=== PATIENT | male | born 1970 | race Caucasian/White ===

== ENCOUNTER 2019-10-10 10:02 | Inpatient (IN) | payer BC ==
[~2019-10-10 10:02] MED LIST: Dexamethasone 4 MG/ML SDV ONE; Glycopyrrolate 0.2 MG/ML 5 ML MDV ONE; Lactated Ringers 1,000 ML ONE; Neostigmine Methylsulfate 1 MG/ML 5 ML Syringe ONE; Ondansetron 4 MG/2 ML SDV ONE; Propofol 200 MG/20 ML SDV ONE; Rocuronium 50 MG/5 ML Vial ONE; Succinylcholine 200 MG/10 ML MDV ONE; cefOXitin 2 GM Vial ONE; fentaNYL 250 MCG/5 ML SDV ONE
[2019-10-10] MEDS ORDERED: Scopolamine 1.5 MG Transdermal Patch TOP ONE (10:15)
[2019-10-10] MEDS ORDERED: Acetaminophen 500 MG Tab PO ONE (10:15)
[2019-10-10] MEDS ORDERED: Gabapentin 300 MG Cap PO ONE (10:15)
[2019-10-10] MEDS ORDERED: Celecoxib 200 MG Cap PO ONE (10:15)
[2019-10-10] MEDS ORDERED: Carvedilol 25 MG Tab PO ONE (10:28)
[2019-10-10] MEDS ORDERED: Dextrose 5%-Lactated Ringers 1,000 ML IV SCH ×2 (11:00→16:00)
[2019-10-10] MEDS ORDERED: cefOXitin 2 GM in Sodium Chloride 0.9% 50 ML IV ONE (11:30)
[2019-10-10] MEDS ORDERED: Lidocaine 2% 100 MG/5 ML Syringe IVPUSH SCH (11:45)
[2019-10-10] MEDS ORDERED: Lidocaine 0.4%/D5W 2 GM/500 ML BAG IV SCH (11:45)
[2019-10-10] MEDS ORDERED: Ketamine 500 MG/5 ML MDV IV SCH (11:45)
[2019-10-10] MEDS ORDERED: Ketamine 50 MG in Sodium Chloride 0.9% 49.5 ML IV SCH (11:45)
[2019-10-10] MEDS ORDERED: fentaNYL 250 MCG/5 ML SDV ONE (13:49)
[2019-10-10] MEDS ORDERED: Propofol 200 MG/20 ML SDV ONE (14:05)
[2019-10-10] MEDS ORDERED: Sugammadex Sodium 200 MG/2 ML VIAL ONE (15:10)
[2019-10-10] MEDS: Insulin Lispro 100 Unit/ML 3 ML KwikPen SUBCUT PRN ×2 (15:25→22:14)
[2019-10-10] MEDS ORDERED: hydrOXYzine HCL 100 MG/2 ML SDV IM PRN (15:55)
[2019-10-10] MEDS ORDERED: diphenhydrAMINE 50 MG/ML SDV IVPUSH PRN (15:55)
[2019-10-10] MEDS ORDERED: HYDROmorphone 0.5 MG/0.5 ML Syringe IVPUSH PRN (15:55)
[2019-10-10] MEDS ORDERED: Labetalol 20 MG/4 ML Syringe IVPUSH PRN (15:55)
[2019-10-10] MEDS ORDERED: SCOPOLAMINE PATCH CHECK TOP SCH (15:55)
[2019-10-10] MEDS ORDERED: Metoclopramide 10 MG/2 ML SDV IVPUSH PRN (15:55)
[2019-10-10] MEDS ORDERED: Ondansetron 4 MG/2 ML SDV IVPUSH PRN (15:55)
[2019-10-10] MEDS ORDERED: HYDROmorphone 1 MG/ML Syringe IV PRN (15:55)
[2019-10-10] MEDS ORDERED: Lactated Ringers 1,000 ML IV SCH (16:00)
[2019-10-10] MEDS: Lidocaine 0.4%/D5W 2 GM/500 ML BAG IV SCH (17:16)
[2019-10-10] MEDS: cefOXitin 2 GM in Sodium Chloride 0.9% 50 ML IV SCH (17:31)
[2019-10-10] MEDS ORDERED: Pantoprazole 40 MG Vial IVPUSH SCH (18:00)
[2019-10-10] MEDS ORDERED: MVI, Adult with Vitamin K 10 ML, Thiamine 200 MG, Chromium/Copper/Mang/Selen/Zn 1 ML in... IV SCH ×4 (18:00)
[2019-10-10] MEDS: Gabapentin 250 MG/5 ML Solution ML 470 ML Bottle PO SCH (20:56)
[2019-10-10] MEDS: Heparin Sodium 5,000 Units/ML Vial SUBCUT SCH (20:56)
[2019-10-10] MEDS: Carvedilol 25 MG Tab PO SCH (20:57)
[2019-10-10] MEDS ORDERED: metFORMIN 500 MG/5 ML PO SCH (21:00)
[2019-10-10] MEDS ORDERED: Insulin Glargine,Human Rec. Analog 100 Units/ML 3 ML Pen SUBCUT ONE (21:00)
[2019-10-10] MEDS: Acetaminophen Soln 650 MG/20.3 ML UD Cup PO SCH (21:03)
[2019-10-11] MEDS: cefOXitin 2 GM in Sodium Chloride 0.9% 50 ML IV SCH ×2 (00:04→06:05)
[2019-10-11] MEDS ORDERED: Iopamidol 612 MG/ML 50 ML SDV PO ONE (02:00)
--- NOTE | 2019-10-11 02:19 | CRLCR ---
Indication: Giana-en-Y gastric bypass. Technique: Abdomen 2 view Comparison: None Findings/Impression: Two submitted abdominal films. The 1st film is centered slightly low with some contrast seen within the stomach as well as proximal small bowel. Second film shows transit of the contrast in the proximal to mid small bowel with a drain noted at the epigastric region. No gross leak seen, however note that the area around the drain is only well seen on the 2nd film and therefore more subtle change between the 2 films could be missed. Dictated by Arben Valles MD @ Oct 11 2019 2:15AM Signed by Dr. Arben Valles @ Oct 11 2019 2:17AM
[2019-10-11] MEDS: Acetaminophen Soln 650 MG/20.3 ML UD Cup PO SCH ×4 (04:51→22:01)
[2019-10-11] MEDS: Heparin Sodium 5,000 Units/ML Vial SUBCUT SCH ×3 (04:51→21:04)
[2019-10-11] MEDS ORDERED: Ondansetron 4 MG Tab.DIS PO PRN (07:31)
[2019-10-11] MEDS ORDERED: hydrOXYzine HCl 25 MG Tab PO PRN (07:38)
[2019-10-11] MEDS: Celecoxib 200 MG Cap PO SCH (08:54)
[2019-10-11] MEDS: metFORMIN 500 MG/5 ML PO SCH ×2 (08:54→17:16)
[2019-10-11] MEDS: Gabapentin 250 MG/5 ML Solution ML 470 ML Bottle PO SCH ×3 (08:55→21:10)
[2019-10-11] MEDS: Carvedilol 25 MG Tab PO SCH ×2 (08:55→21:05)
[2019-10-11] MEDS: Lactated Ringers 1,000 ML IV SCH ×2 (08:59→10:35)
[2019-10-11] MEDS ORDERED: amLODIPine 10 MG Tab PO SCH (09:00)
[2019-10-11] MEDS ORDERED: Non-Formulary Medication 1 Each (Lisinopril [Zestril] 40 MG) PO SCH (09:00)
[2019-10-11] MEDS ORDERED: Lisinopril 20 MG Tab PO SCH (09:00)
[2019-10-11] MEDS ORDERED: PARoxetine 20 MG Tab PO SCH (09:00)
--- NOTE | 2019-10-11 09:22 | PCM.PN ---
- General Info Date of Service: 10/11/19 Admission Dx/Problem (Free Text): morbid obesity Subjective Update: No pain this morning, no complaints. Functional Status: Reports: Pain Controlled - Review of Systems General: Reports: No Symptoms HEENT: Reports: No Symptoms Pulmonary: Reports: No Symptoms Cardiovascular: Reports: No Symptoms Gastrointestinal: Reports: No Symptoms Genitourinary: Reports: No Symptoms Musculoskeletal: Reports: No Symptoms Skin: Reports: No Symptoms Neurological: Reports: No Symptoms Psychiatric: Reports: No Symptoms - Patient Data Vitals - Most Recent: Last Vital Signs Temp 37 C 10/11/19 07:07 Pulse 86 10/11/19 08:55 Resp 18 10/11/19 07:07 BP 125/62 10/11/19 08:56 Pulse Ox 90 L 10/11/19 07:29 Weight - Most Recent: 132.534 kg I&O - Last 24 Hours: Intake & Output 10/10/19 10/11/19 10/11/19 22:59 06:59 14:59 Intake Total 387 2542 120 Output Total 860 840 150 Balance -473 1702 -30 Lab Results Last 24 Hours: Laboratory Results - last 24 hr 10/10/19 Range/Units 10:15 Blood Type A POSITIVE Gel Antibody Screen Negative Med Orders - Current: Current Medications Acetaminophen (Tylenol) 650 mg PO Q6H [facility] Last Admin: 10/11/19 04:51 Dose: 650 mg Alogliptin Benzoate (Alogliptin) 25 mg PO DAILY [facility] Last Admin: 10/11/19 08:55 Dose: 25 mg Amlodipine Besylate (Norvasc) 10 mg PO DAILY [facility] Last Admin: 10/11/19 08:56 Dose: 10 mg Carvedilol (Coreg) 25 mg PO BID [facility] Last Admin: 10/11/19 08:55 Dose: 25 mg Celecoxib (Celebrex) 200 mg PO DAILY@0800 [facility] Last Admin: 10/11/19 08:54 Dose: 200 mg Cyanocobalamin (Vitamin B12) 1,000 mcg IM ONETIME ONE Stop: 10/12/19 09:01 Diphenhydramine HCl (Benadryl) 50 mg IVPUSH Q4H PRN PRN Reason: ITCHING Gabapentin (Neurontin) 300 mg PO TID [facility] Last Admin: 10/11/19 08:55 Dose: 300 mg Heparin Sodium (Porcine) (Heparin Sodium) 5,000 units SUBCUT Q8H [facility] Last Admin: 10/11/19 04:51 Dose: 5,000 units Hydroxyzine HCl (Vistaril) 100 mg IM Q4H PRN PRN Reason: pain Hydroxyzine HCl (Atarax) 25 mg PO Q4H PRN PRN Reason: Pain Lidocaine HCl/Dextrose (Lidocaine 2 Gm/D5w 500 Ml) 2 gm in 500 mls @ 15 mls/hr IV .Q24H [facility] Stop: 10/11/19 15:00 Last Admin: 10/10/19 17:16 Dose: 1 mg/min, 15 mls/hr Lactated Ringer's (Ringers, Lactated) 1,000 mls @ 100 mls/hr IV ASDIRECTED [facility] Multivitamins/Minerals 10 ml/Thiamine HCl 200 mg/ Chromium/Copper/Manganese/ Seleni/Zn 1 ml/ Lactated Ringer's 1,013 mls @ 100 mls/hr IV DAILY@1600 [facility] Insulin Glargine (Lantus Solostar) 10 units SUBCUT BEDTIME [facility] Insulin Human Lispro (Humalog) 0 unit SUBCUT Q6H PRN; Protocol PRN Reason: CORRECTIONAL DOSING Last Admin: 10/10/19 22:14 Dose: 5 units Labetalol HCl (Normodyne) 5 mg IVPUSH Q5M PRN PRN Reason: SBP over 160 OR DBP over 95 Levothyroxine Sodium (Synthroid) 100 mcg PO ACBREAKFAST [facility] Lisinopril (Prinivil) 40 mg PO DAILY [facility] Last Admin: 10/11/19 08:56 Dose: 40 mg Metformin HCl (Riomet) 1,000 mg PO BID@0800,1700 [facility] Last Admin: 10/11/19 08:54 Dose: 1,000 mg Metoclopramide HCl (Reglan) 10 mg IVPUSH Q6H PRN PRN Reason: NAUSEA NOT CONTROL BY ZOFRAN Miscellaneous Information (Remove Patch) 1 ea TRDERM ONETIME ONE Stop: 10/12/19 10:01 Scopolamine Patch (Check) 1 each TOP DAILY [facility] Stop: 10/12/19 15:56 Ondansetron HCl (Zofran) 4 mg IVPUSH Q4H PRN PRN Reason: Nausea/Vomiting Ondansetron HCl (Zofran Odt) 4 mg PO Q4H PRN PRN Reason: Nausea/Vomiting Pantoprazole Sodium (Protonix Iv) 40 mg IVPUSH Q24H [facility] Last Admin: 10/10/19 17:21 Dose: 40 mg Paroxetine HCl (Paxil) 20 mg PO DAILY [facility] Last Admin: 10/11/19 08:56 Dose: 20 mg Trazodone HCl (Trazodone) 50 mg PO BEDTIME [facility] Discontinued Medications Acetaminophen (Tylenol Extra Strength) 1,000 mg PO ONETIME ONE Stop: 10/10/19 10:16 Last Admin: 10/10/19 10:34 Dose: 1,000 mg Carvedilol (Coreg) 25 mg PO ONETIME ONE Stop: 10/10/19 10:29 Last Admin: 10/10/19 10:46 Dose: 25 mg Cefoxitin Sodium (Mefoxin) Confirm Administered Dose 2 gm .ROUTE .STK-MED ONE Stop: 10/10/19 08:18 Last Admin: 10/10/19 13:55 Dose: 2 gm Celecoxib (Celebrex) 200 mg PO ONETIME ONE Stop: 10/10/19 10:16 Last Admin: 10/10/19 10:34 Dose: 200 mg Ropivacaine 60 ml/Dexamethasone 8 mg/Epinephrine HCl 0.4 mg/ Sodium Chloride 17.6 ml 0 ml NERVRT ASDIRECTED [facility] Last Admin: 10/10/19 13:37 Dose: 80 syringe Dexamethasone (Dexamethasone) Confirm Administered Dose 4 mg .ROUTE .STK-MED ONE Stop: 10/10/19 08:12 Fentanyl (Sublimaze) Confirm Administered Dose 250 mcg .ROUTE .STK-MED ONE Stop: 10/10/19 08:12 Fentanyl (Sublimaze) Confirm Administered Dose 250 mcg .ROUTE .STK-MED ONE Stop: 10/10/19 13:50 Gabapentin (Neurontin) 300 mg PO ONETIME ONE Stop: 10/10/19 10:16 Last Admin: 10/10/19 10:34 Dose: 300 mg Glycopyrrolate (Robinul) Confirm Administered Dose 1 mg .ROUTE .STK-MED ONE Stop: 10/10/19 08:12 Hydromorphone HCl (Dilaudid) 0.5 mg IVPUSH Q2H PRN PRN Reason: MODERATE PAIN Hydromorphone HCl (Dilaudid) 1 mg IV Q2H PRN PRN Reason: SEVERE PAIN Lidocaine HCl/Dextrose (Lidocaine 2 Gm/D5w 500 Ml) 2 gm in 500 mls @ 15 mls/hr IV .Q24H [facility] Stop: 10/10/19 15:00 Last Admin: 10/10/19 17:09 Dose: Not Given Ketamine HCl 50 mg/ Sodium (Chloride) 50 mls @ 20.52 mls/hr IV ASDIRECTED [facility] Cefoxitin Sodium 2 gm/ Sodium (Chloride) 50 mls @ 100 mls/hr IV ONETIME ONE Stop: 10/10/19 11:59 Last Admin: 10/10/19 12:40 Dose: 100 mls/hr Dextrose/Lactated Ringer's (Dextrose 5%-Lactated Ringers) 1,000 mls @ 100 mls/ hr IV ASDIRECTED [facility] Last Admin: 10/10/19 11:15 Dose: 100 mls/hr Lactated Ringer's (Ringers, Lactated) Confirm Administered Dose 1,000 mls @ as directed .ROUTE .STK-MED ONE Stop: 10/10/19 08:16 Dextrose/Lactated Ringer's (Dextrose 5%-Lactated Ringers) 1,000 mls @ 50 mls/ hr IV ASDIRECTED [facility] Last Admin: 10/10/19 17:19 Dose: 50 mls/hr Lactated Ringer's (Ringers, Lactated) 1,000 mls @ 125 mls/hr IV ASDIRECTED [facility] Last Admin: 10/11/19 01:33 Dose: 125 mls/hr Multivitamins/Minerals 10 ml/Thiamine HCl 200 mg/ Chromium/Copper/Manganese/ Seleni/Zn 1 ml/ Lactated Ringer's 1,013 mls @ 125 mls/hr IV DAILY@1600 [facility] Last Admin: 10/10/19 17:20 Dose: 125 mls/hr Cefoxitin Sodium 2 gm/ Sodium (Chloride) 50 mls @ 100 mls/hr IV Q6H [facility] Stop: 10/11/19 06:59 Last Admin: 10/11/19 06:05 Dose: 100 mls/hr Insulin Glargine (Lantus Solostar) 25 units SUBCUT ONETIME ONE Stop: 10/10/19 21:01 Last Admin: 10/10/19 22:13 Dose: 25 units Iopamidol (Isovue-300 (61%)) 50 ml PO ASDIRECTED ONE Stop: 10/11/19 02:01 Last Admin: 10/11/19 04:51 Dose: Not Given Ketamine HCl (Ketalar) 34 mg IV ASDIRECTED [facility] Lidocaine HCl (Xylocaine 2%) 100 mg IVPUSH ASDIRECTED [facility] Metformin HCl (Riomet) 1,000 mg PO BID [facility] Last Admin: 10/10/19 20:56 Dose: 1,000 mg Neostigmine Methylsulfate (Neostigmine) Confirm Administered Dose 5 mg .ROUTE .STK-MED ONE Stop: 10/10/19 08:12 Ondansetron HCl (Zofran) Confirm Administered Dose 4 mg .ROUTE .STK-MED ONE Stop: 10/10/19 08:12 Pharmacy Consult (Consult To Pharmacy) 1 each .XX ASDIRECTED [facility] Stop: 10/10/19 16:16 Propofol (Diprivan 20 Ml) Confirm Administered Dose 200 mg .ROUTE .STK-MED ONE Stop: 10/10/19 08:12 Propofol (Diprivan 20 Ml) Confirm Administered Dose 200 mg .ROUTE .STK-MED ONE Stop: 10/10/19 14:06 Rocuronium [place] (Zemuron) Confirm Administered Dose 50 mg .ROUTE .STK-MED ONE Stop: 10/10/19 08:12 Scopolamine (Transderm-Scop) 1.5 mg TOP ONETIME ONE Stop: 10/10/19 10:16 Last Admin: 10/10/19 10:35 Dose: 1.5 mg Succinylcholine Chloride (Quelicin) Confirm Administered Dose 200 mg .ROUTE .STK -MED ONE Stop: 10/10/19 08:12 Sugammadex Sodium (Bridion) Confirm Administered Dose 200 mg .ROUTE .STK-MED ONE Stop: 10/10/19 15:11 - Exam General: Alert, No Acute Distress Lungs: Normal Respiratory Effort Skin: Warm, Dry, Intact Wound/Incisions: Dressing Dry and Intact Psy/Mental Status: Alert, Normal Affect, Normal Mood Sepsis Event Note - Evaluation Sepsis Screening Result: No Definite Risk - Focused Exam Vital Signs: Vital Signs Temp Pulse Pulse Resp BP BP Pulse Ox 10/11/19 08:56 125/62 10/11/19 08:55 86 125/62 10/11/19 07:29 90 L 10/11/19 07:07 37 C 88 18 125/62 90 L 10/11/19 06:00 92 16 113/69 90 L 10/11/19 05:00 88 16 125/69 93 L 10/11/19 04:00 37.3 C 88 16 118/66 95 10/11/19 03:00 92 16 117/70 92 L 10/11/19 02:15 37.7 C 102 H 16 121/66 92 L 10/11/19 01:08 92 L 10/11/19 01:00 91 16 135/74 91 L 10/11/19 00:00 91 16 115/69 96 10/10/19 23:00 37.3 C 94 16 130/76 90 L 10/10/19 22:00 96 18 147/81 H 92 L Date Exam was Performed: 10/12/19 Time Exam was Performed: 09:33 - Problem List Review Problem List Initiated/Reviewed/Updated: No - Assessment Assessment:: 49-year-old male morbidly obese on postoperative day 1 after laparoscopic sleeve gastrectomy with hiatal hernia repair and peritoneal nodule excision biopsy. Vitals stable, no pain, postoperative xray showed no leakage. - Plan Plan:: [employer]er to see patient and initiate blood sugar measurements, anticipating an ongoing dynamic change in diabetic management requirements. Diet: Step 2 no solids. Starting Alogliptin 25 mg daily, and Lantus 10 units at bedtime. Decrease LR IV to 100 ml/h. Will stop lidocaine epidural this afternoon and transition to oral meds. Possible discharge home tomorrow.
[2019-10-11] MEDS ORDERED: Scopolamine 1.5 MG Transdermal Patch TRDERM ONE (09:56)
[2019-10-11] MEDS: Levothyroxine 100 MCG Tab PO SCH (10:32)
[2019-10-11] MEDS: Lidocaine 0.4%/D5W 2 GM/500 ML BAG IV SCH (15:05)
[2019-10-11] MEDS ORDERED: MVI, Adult with Vitamin K 10 ML, Thiamine 200 MG, Chromium/Copper/Mang/Selen/Zn 1 ML in... IV SCH ×4 (16:00)
[2019-10-11] MEDS ORDERED: Pantoprazole 40 MG Delayed-Release Granules 1 Packet PO SCH (18:00)
[2019-10-11] MEDS ORDERED: Insulin Glargine,Human Rec. Analog 100 Units/ML 3 ML Pen SUBCUT SCH (21:00)
[2019-10-11] MEDS ORDERED: traZODone 50 MG Tab PO SCH (21:00)
[2019-10-12] MEDS: Heparin Sodium 5,000 Units/ML Vial SUBCUT SCH (03:27)
[2019-10-12] MEDS: Lactated Ringers 1,000 ML IV SCH (03:27)
[2019-10-12] MEDS: Acetaminophen Soln 650 MG/20.3 ML UD Cup PO SCH (03:27)
[2019-10-12] MEDS: Levothyroxine 100 MCG Tab PO SCH (08:08)
[2019-10-12] MEDS: metFORMIN 500 MG/5 ML PO SCH (08:08)
[2019-10-12] MEDS: Celecoxib 200 MG Cap PO SCH (08:08)
[2019-10-12] MEDS ORDERED: Cyanocobalamin (Vitamin B12) 1,000 MCG/ML SDV IM ONE (09:00)
--- NOTE | 2019-10-12 13:00 | DISCH ---
ADMISSION DIAGNOSES: 1. Morbid obesity. 2. BMI 43.1. 3. Psychophysiological insomnia. 4. Essential hypertension. 5. Dyslipidemia. 6. Vitamin D deficiency. 7. Controlled type 2 diabetes mellitus with microalbuminuria. 8. Major depression, in remission. 9. Lumbar back pain with radiculopathy affecting left lower extremity. 10.Hypothyroidism, unspecified type. DISCHARGE DIAGNOSES: 1. Laparoscopic sleeve gastrectomy. 2. Liver biopsy. 3. Excision of peritoneal nodule. 4. Repair of diaphragmatic hernia. 5. Excision of mediastinal lipoma for postoperative diagnoses morbid obesity, hepatomegaly, peritoneal nodule under left diaphragm, diaphragmatic hernia, and mediastinal lipoma. Date of surgery: 10/10/2019. HISTORY: Kenny Escobar is a 49-year-old male with longstanding history of morbid obesity and increasing comorbidities. After preoperative evaluation and discussion of possible risks and possible complications, he wished to proceed with surgical procedure. HOSPITAL COURSE: Kenny had his surgery on 10/10/2019. He had no operative complications. On postoperative day #1, he was started on a step 2 gastric bypass diet with no cereal. His blood sugars were managed and they continued to decrease. He received dietary instruction as well as Pushpa Kuo RN, CDE instructed the patient on glucometer and testing blood sugars. On postoperative day #2, he is ready to be discharged to home with no complications. Vital signs stable, pain controlled, activity good, oral intake adequate. OBJECTIVE: GENERAL: Kenny Escobar is a pleasant 49-year-old male. VITAL SIGNS: Height is 5 feet 9 inches, weight is 292 pounds, BMI is 43.1. TPR 95.7, last temperature was on 10/11/2019 at 2307. Pulse on 10/12/2019 at 07:27 was 71, respirations 16, blood pressure 159/92, O2 by pulse oximetry is 92%. HEENT: Negative. NECK: Supple. HEART: Regular rate and rhythm. LUNGS: Clear. ABDOMEN: Incisions look good. 4x4 will be placed over UGO drain once it is removed. Abdominal binder has been on. EXTREMITIES: Without peripheral edema. DISPOSITION: Discharged to home. CONDITION: Stable and improving. FOLLOWUP: Appointment with Chapis Odom PA-C, at [facility] on 10/19/2019 at 9 a.m. HOME MEDICATIONS: 1. Tylenol 650 mg q.6 hours for pain. 2. Milk of magnesia 30 mL to take 1 daily for constipation, two doses were sent home with the patient. 3. To continue taking metformin 1000 mg oral twice daily with meals, to split. 4. Zofran ODT 4 mg every 4 hours p.r.n. nausea, #30. He is to resume his home medication of: 1. Coreg 25 mg twice daily. 2. Celebrex 200 mg oral daily for 14 days. 3. Levothyroxine 100 mcg once daily. 4. Lisinopril 40 mg oral daily. 5. Paxil 20 mg oral daily. 6. Amlodipine 10 mg oral daily. 7. Hold Lipitor for 1 month. 8. Trazodone 50 mg oral at bedtime. To discontinue takin. Vitamin D3. 2. Jardiance. 3. Fish oil. 4. Tresiba. 5. Victoza. DIET AFTER DISCHARGE: Step 2 gastric bypass diet with no cereal until November 10, 2019. Drink 8 to 10 glasses of water a day. ACTIVITY: No lifting greater than 10 pounds for 2 weeks. Other activity: Walk at least 6 times a day inside your home. Driving: Do not drive for 1 week. SHOWER/BATHING: May shower. DISCHARGE INSTRUCTIONS: Notify provider if any fever, increased pain, nausea, or vomiting. Keep site clean and dry. Wear abdominal binder for 2 weeks and then as tolerated. SPECIAL INSTRUCTIONS: Use incentive spirometer 10 times every hour while awake for 1 week. Check blood sugars 4 times a day, record the results and bring to clinic appointments. Call with blood sugar results on Wednesday10/16/2019 at [phone].
--- NOTE | 2019-10-18 14:20 | OR ---
DATE OF PROCEDURE: 10/10/2019 SURGEON: Khoa Bautista MD PREOPERATIVE DIAGNOSIS: Morbid obesity. POSTOPERATIVE DIAGNOSES: 1. Morbid obesity. 2. Marked hepatomegaly. 3. Peritoneal nodule under the left diaphragm. 4. Paraesophageal diaphragmatic hernia. 5. Mediastinal lipoma. OPERATIVE PROCEDURES: Diagnostic laparoscopy with: 1. Laparoscopic sleeve gastrectomy (96879). 2. Vic-Cut needle liver biopsy (99921). 3. Excision of peritoneal nodule overlying left diaphragm (68171). 4. Repair of paraesophageal diaphragmatic hernia (55906). 5. Excision of mediastinal lipoma (36921). ANESTHESIA: General. ASSISTANTS: 1. Chapis Odom PA-C. 2. ERIKA Diego3. INDICATION FOR PROCEDURE: This is a 49-year-old male presenting with longstanding morbid obesity and increasingly significant comorbidities. After preoperative evaluation and discussion, he wished to proceed with a sleeve gastrectomy. Potential risks of the procedure including bleeding, infection, leaks from the staple lines, as well as the possibility of cardiopulmonary, septic, or hemorrhagic complications leading to were all discussed, and the patient wishes to proceed. DETAILS OF PROCEDURE: The patient was taken to the operating room and placed in a supine position. After general endotracheal anesthesia was induced, he was placed in a lithotomy position and the abdomen prepped and draped. At 15 cm inferior and 5 cm left of the xiphoid process, a transverse incision was made. Peritoneal cavity entered under direct vision with an Optiview trocar and inflated to 15 mmHg pressure with CO2. Laparoscope was reinserted. No underlying trocar insertion site injuries were seen. Bilateral transversus abdominis plane blocks were then placed, and 5 additional trocars were placed across the upper and mid abdomen. Examination showed marked hepatomegaly with the liver being grossly fatty infiltrated. Vic-Cut needle biopsy was obtained from left lobe of the liver. Minimal bleeding from the biopsy site was controlled with electrocautery. At this point, further inspection revealed a 2 mm glistening white nodule over the midportion of the left diaphragm. This was excised for histologic confirmation as well. The liver was then retracted anteriorly. The patient was noted to have significant paraesophageal diaphragmatic hernia. This was associated with prolapse of a portion of perigastric fat and some omentum in a plane anterior to the course of the esophagus. This was reduced. The peritoneum overlying was incised and reflected downward, and anterior repair of the diaphragmatic hernia was then accomplished with a 0 Ethibond stitch, reinforced with PTFE pledgets. During the course of that dissection, mediastinal lipoma was encountered, and this was also excised and sent as a separate specimen. Beginning in the mid greater curvature, the omentum was divided away from the surface of the stomach, and this dissection was then continued proximally to include the highest and posterior short gastric vessels. The left shan of the diaphragm was then more or less skeletonized to be sure that that the fundus was adequately freed up so as to avoid a large proximal stomach pouch site involving the proximal sleeve gastrectomy. The dissection then continued distally through the omentum down to the level 2 cm proximal to the pyloric sphincter. Some posterior attachments to the stomach were then taken down as well, and at that point, the initial staple line was mapped out, beginning 2 cm proximal to the pylorus and extending up to the left of the incisura angularis. Cautery was used to huma the initial staple line, and care was taken to avoid overtightening of the incisura angularis. The first 3 firings were done with plain CHRISTOPHER black loads. At that point, Anesthesia placed a 32-Italian suction tube in orally down through the esophagus and into the stomach, and this was positioned along the lesser curvature of the stomach, and then where the stomach was pulled up snuggly against the tube, the suction was applied. Remainder of the sleeve gastrectomy was accomplished with a series of reinforced black and reinforced purple loads and the gastrectomy specimen then placed off to the side. Again, the staple line was inspected and found to be intact, and it was then reinforced with fibrin sealant for strength with focus of the reinforcement on the esophagogastric junction. Omentum was then tacked up along the entire length of the sleeve gastrectomy with some 3-0 Vicryl seromuscular stitch with the suction tube now off of any suction and the duodenum being compressed, the area was irrigated with antibiotic-containing saline solution and air injected such that the remaining stomach was under tense distention, and no leaks or other problems were noted. A single Luis E-Leal drain was then placed in the left lateral trocar site after the stomach specimen had been removed. The fascia at the left lateral trocar site, which had been widened somewhat to get the soft stomach specimen out, was closed with 0 Ethibond suture, and then each incision closed with 4-0 Vicryl skin stitch. The drain was sutured to the skin with 4-0 Vicryl stitch as well, and the patient was taken to the recovery room in satisfactory condition. Physician resident assistant, Chapis Odom, played an essential role in assisting in this case, helping to position the patient, retract structures as needed, as well as suturing and cutting sutures when indicated. Her presence improved patient safety and decreased operative time. Khoa Bautista MD /[id number]
== END 2019-10-12 09:30 | disposition home or self-care (01) | DRG 403 ==
LOC: JP.SDSSCHI 10:02 → JP.SDS 10:02 → EDSTATUS 10:15 → JP.MS 15:00
PROVIDERS: ADMIT Surgery; ATTEND Surgery
PROC: 0DB64Z3 Excision of Stomach, Percutaneous Endoscopic Approach, Vertical (ICD-10-PCS; principal; 2019-10-10)
PROC: 0FB24ZX Excision of Left Lobe Liver, Percutaneous Endoscopic Approach, Diagnostic (ICD-10-PCS; 2019-10-10)
PROC: 0BQT4ZZ Repair Diaphragm, Percutaneous Endoscopic Approach (ICD-10-PCS; 2019-10-10)
PROC: 0BBT4ZZ Excision of Diaphragm, Percutaneous Endoscopic Approach (ICD-10-PCS; 2019-10-10)
PROC: 0WBC4ZZ Excision of Mediastinum, Percutaneous Endoscopic Approach (ICD-10-PCS; 2019-10-10)
DX: E66.01 Morbid (severe) obesity due to excess calories (principal); Z68.41 Body mass index [BMI] 40.0-44.9, adult; F51.04 Psychophysiologic insomnia; I10 Essential (primary) hypertension; E78.5 Hyperlipidemia, unspecified; E55.9 Vitamin D deficiency, unspecified; K66.8 Other specified disorders of peritoneum; E11.9 Type 2 diabetes mellitus without complications; R80.9 Proteinuria, unspecified; F32.5 Major depressive disorder, single episode, in full remission; M54.16 Radiculopathy, lumbar region; D17.4 Benign lipomatous neoplasm of intrathoracic organs; E03.9 Hypothyroidism, unspecified; Z79.899 Other long term (current) drug therapy; Z79.4 Long term (current) use of insulin
CPT/HCPCS: 36415; 74240; 82962; 86850; 86900; 86901; 88304; 88307; 88313; 94762; A9270-GY; C9113; J0171; J0330; J0694; J1100; J1644; J1815; J1815-GY; J2001; J2405; J2704; J2710; J2795; J3010; J3411; J3490; J7050; J7120; J7121